=== PATIENT | male | born 1955 | race Caucasian/White ===

== ENCOUNTER → 2019-01-30 | Outpatient (CLI) | payer OTHER ==
[~2019-01-30] MED LIST: ASPIRIN EC81 M1 PO; FENOFIBRATE134 MG PO; FISH OIL 1,0001 EAC5 PO; GLUCOPHAGE500 MG PO; GLUCOSAMINE &1 EACH PO; HUMALOG100 UNIT/1 SC; HUMULIN N100 UNIT/1 SC; MULTIVITAMINS PO; OMEPRAZOLE20 M2 PO; SIMVASTATIN40 MG PO; UNIVASC7.5 MG PO
== END ==
LOC: CAT 08:19
DX: Z13.6 Encounter for screening for cardiovascular disorders (principal); E78.00 Pure hypercholesterolemia, unspecified; I25.10 Atherosclerotic heart disease of native coronary artery without angina pectoris